=== PATIENT | female | born 1990 | race Two or more races ===

== ENCOUNTER 2021-10-09 17:13 | Emergency (ER) | payer MEDICAID, OTHER ==
[~2021-10-09] VITALS: Ht 152.4 cm; Wt 70.0 kg
[2021-10-09] MEDS ORDERED: HYDROcodone-ACET 10/325MG TAB PO ONE (21:00)
[2021-10-09] MEDS ORDERED: KETOROLAC TROMETH 60MG/2ML VIAL IM ONE (21:00)
[2021-10-09 22:00] VITALS: BP 124/76
== END 2021-10-09 23:32 | disposition home or self-care (01) ==
LOC: ER 17:13 → EDBD 17:13 → ER 22:55
DX: M54.2 Cervicalgia (principal); M54.6 Pain in thoracic spine; V43.52XA Car driver injured in collision with other type car in traffic accident, initial encounter; Y93.89 Activity, other specified; Y92.488 Other paved roadways as the place of occurrence of the external cause; Y99.8 Other external cause status
CPT/HCPCS: 72040; 96372; 99283; J1885

== ENCOUNTER 2022-07-19 18:06 | Emergency (ER) | payer MEDICAID, OTHER ==
[~2022-07-19] VITALS: Ht 162.6 cm; Wt 77.0 kg
[2022-07-19 18:49] VITALS: BP 138/95
[2022-07-19] MEDS ORDERED: ONDANSETRON HCL 4 MG/2 ML VIAL IV ONE (19:15)
[2022-07-19] MEDS ORDERED: SODIUM CHLORIDE 0.9% 1,000 ML IVB ONE (19:15)
[2022-07-19] MEDS ORDERED: PANTOPRAZOLE 40 MG/10 ML VIAL INJ IV ONE (19:15)
[2022-07-19 19:24] LABS: Urine Bacteria MOD /hpf (None Seen); Urine Blood 3+ /uL (Negative); Urine Specific Gravity 1.038 (1.001-1.035); Urine WBC 22 /hpf (0 - 5)
[2022-07-19 19:25] LABS: Basophils # (auto) 0.1 10 ^3/uL (0-0.2); Basophils % (auto) 0.5 % (0.0-2.0); Eosinophils # (auto) 0.1 10 ^3/uL (0-0.8); Eosinophils % (auto) 0.6 % (0.0-7.0); Hematocrit 46.1 % (36.0-46.0); Hemoglobin 15.8 g/dL (12.2-16.2); Lymphocytes # (auto) 3.5 10 ^3/uL (0.4-5.4); Lymphocytes % (auto) 29.5 % (10.0-50.0); Mean Corpuscular Hemoglobin 28.9 pg (28.0-32.0); Mean Corpuscular Hgb Conc. 34.2 g/dL (32.0-36.0); Mean Corpuscular Volume 84.5 fL (80.0-100.0); Monocytes # (auto) 0.5 10 ^3/uL (0-1.3); Monocytes % (auto) 3.8 % (0.0-12.0); Neutrophils # (auto) 7.8 10 ^3/uL (1.6-8.6); Neutrophils % (auto) 65.6 % (37.0-80.0); Nucleated Red Blood Cells % 0.2 %; Red Blood Cells 5.46 10^6/uL (4.0-5.20); Red Cell Distribution Width 13.2 % (11.8-14.3); White Blood Cell 11.9 10^3/uL (4.4-10.8)
[2022-07-19 19:45] LABS: INR 0.93 (0.9-1.15); Partial Thromboplastin Time 25.2 sec (24.6-33.4)
[2022-07-19 19:53] LABS: Albumin 3.8 g/dL (3.4-5.0); BUN/Creatinine Ratio 24.5 (10.0-20.0); Calcium 9.1 mg/dL (8.5-10.1); Potassium 3.6 mmol/L (3.5-5.1)
[2022-07-19 20:03] LABS: Bilirubin, Total 0.3 mg/dL (0.2-1.0); Total Protein 8.4 g/dL (6.4-8.2)
[2022-07-19] MEDS ORDERED: cefTRIAXone 1GM/50ML D5W 50 ML IV ONE (20:30)
[2022-07-19] MEDS ORDERED: ONDA-144 PO (20:31)
[2022-07-19] MEDS ORDERED: CIPR-173 PO (20:31)
== END 2022-07-19 23:25 | disposition home or self-care (01) ==
LOC: ER 18:06
DX: N39.0 Urinary tract infection, site not specified (principal); Z90.49 Acquired absence of other specified parts of digestive tract
CPT/HCPCS: 36415; 74176; 80053; 81001; 81025; 83690; 85025; 85610; 85730; 96365; 96375; 99285; C9113; J0696; J2405; J7030

== ENCOUNTER 2023-03-28 20:54 | Emergency (ER) | payer MEDICAID ==
[~2023-03-28] VITALS: Ht 154.9 cm; Wt 169.0 kg
[~2023-03-28 20:54] MED LIST: CIPR-173 PO; ONDA-144 PO
[2023-03-28 21:26] LABS: Basophils # (auto) 0 10 ^3/uL (0-0.2); Basophils % (auto) 0.3 % (0.0-2.0); Eosinophils # (auto) 0.1 10 ^3/uL (0-0.8); Eosinophils % (auto) 0.9 % (0.0-7.0); Hematocrit 44.7 % (36.0-46.0); Hemoglobin 15.3 g/dL (12.2-16.2); Lymphocytes # (auto) 4.2 10 ^3/uL (0.4-5.4); Lymphocytes % (auto) 45.4 % (10.0-50.0); Mean Corpuscular Hemoglobin 29.6 pg (28.0-32.0); Mean Corpuscular Hgb Conc. 34.3 g/dL (32.0-36.0); Mean Corpuscular Volume 86.3 fL (80.0-100.0); Monocytes # (auto) 0.5 10 ^3/uL (0-1.3); Monocytes % (auto) 5.9 % (0.0-12.0); Neutrophils # (auto) 4.4 10 ^3/uL (1.6-8.6); Neutrophils % (auto) 47.5 % (37.0-80.0); Nucleated Red Blood Cells % 0.1 %; Red Blood Cells 5.18 10^6/uL (4.0-5.20); Red Cell Distribution Width 12.7 % (11.8-14.3); White Blood Cell 9.3 10^3/uL (4.4-10.8)
[2023-03-28 21:33] LABS: Chloride 98 mmol/L (98-107); Potassium 3.4 mmol/L (3.5-5.1); Sodium 131 mmol/L (136-145)
[2023-03-28 21:34] LABS: Anion Gap 11 (5-15); Calcium 9.7 mg/dL (8.5-10.1); Carbon Dioxide 22 mmol/L (20-30)
[2023-03-28 21:39] LABS: BUN/Creatinine Ratio 14.9 (10.0-20.0); Blood Urea Nitrogen 10 mg/dL (9-23); Glucose 385 mg/dL (74-106)
[2023-03-28] MEDS ORDERED: OMEP-434 PO (23:17)
[2023-03-28 23:43] VITALS: BP 120/88; PULSE 94; RESP 20; TEMP 97.8; O2SAT 97
== END 2023-03-28 23:44 | disposition home or self-care (01) ==
LOC: ER 20:54
DX: K21.9 Gastro-esophageal reflux disease without esophagitis (principal); R07.89 Other chest pain; Z98.890 Other specified postprocedural states; Z79.899 Other long term (current) drug therapy
CPT/HCPCS: 36415; 71045; 80048; 83880; 84484; 85025; 93005

== ENCOUNTER 2024-01-17 09:21 | Emergency (ER) | payer MEDICAID, OTHER ==
[~2024-01-17] VITALS: Ht 160 cm; Wt 80.2 kg
[~2024-01-17 09:21] MED LIST changes: +OMEP-434 PO
[2024-01-17 09:49] VITALS: PULSE 117; RESP 16; O2SAT 97
[2024-01-17] MEDS: SODIUM CHLORIDE 0.9% 1,000 ML IV ONE (10:34)
[2024-01-17] MEDS: ONDANSETRON ODT 4 MG TAB PO ONE (10:37)
[2024-01-17 11:00] LABS: Basophils # (auto) 0 10 ^3/uL (0-0.2); Basophils % (auto) 0.2 % (0.0-2.0); Eosinophils # (auto) 0 10 ^3/uL (0-0.8); Hematocrit 44.6 % (36.0-46.0); Hemoglobin 14.9 g/dL (12.2-16.2); Lymphocytes # (auto) 2.4 10 ^3/uL (0.4-5.4); Lymphocytes % (auto) 15.1 % (10.0-50.0); Mean Corpuscular Hgb Conc. 33.5 g/dL (32.0-36.0); Mean Corpuscular Volume 86.4 fL (80.0-100.0); Monocytes # (auto) 0.5 10 ^3/uL (0-1.3); Neutrophils % (auto) 81.7 % (37.0-80.0); Platelet Count (auto) 337 10^3/uL (140-450); Red Blood Cells 5.16 10^6/uL (4.0-5.20); Red Cell Distribution Width 13.3 % (11.8-14.3); White Blood Cell 15.9 10^3/uL (4.4-10.8)
[2024-01-17 11:32] LABS: Anion Gap 12 (5-15); Carbon Dioxide 22 mmol/L (20-31); Chloride 103 mmol/L (98-107); Potassium 3.3 mmol/L (3.5-5.1); Sodium 137 mmol/L (136-145)
[2024-01-17 11:34] LABS: Calcium 10.1 mg/dL (8.7-10.4)
[2024-01-17 11:38] LABS: Blood Urea Nitrogen 11 mg/dL (9-23); Glucose 247 mg/dL (74-106)
[2024-01-17 11:44] LABS: Lipase 52 U/L (12-53)
[2024-01-17 12:20] VITALS: BP 113/77; PULSE 107; RESP 18; TEMP 98.2; O2SAT 96
[2024-01-17 12:31] LABS: Urine Bacteria None Seen /hpf (None Seen)
[2024-01-17] MEDS ORDERED: ZOFR4T PO (12:53)
[2024-01-17 13:06] LABS: Urine Blood Negative /uL (Negative); Urine Clarity Clear (Clear); Urine Color Light-Yellow (Yellow); Urine Mucus FEW (None Seen); Urine Protein, UAD 1+ (Negative); Urine Specific Gravity 1.036 (1.001-1.035); Urine Urobilinogen Normal (Negative); Urine WBC 3 /hpf (0 - 5)
== END 2024-01-17 13:31 | disposition home or self-care (01) ==
LOC: ER 09:21
DX: R11.2 Nausea with vomiting, unspecified (principal); R10.13 Epigastric pain; R10.2 Pelvic and perineal pain; E11.9 Type 2 diabetes mellitus without complications; Z90.49 Acquired absence of other specified parts of digestive tract; Z79.899 Other long term (current) drug therapy
CPT/HCPCS: 36415; 80048; 81001; 82962; 83690; 84702; 85025; 96360; 99283; J7030; Q0162

== ENCOUNTER 2024-01-18 20:06 | Emergency (ER) | payer OTHER ==
[~2024-01-18] VITALS: Ht 160 cm; Wt 80.6 kg
[~2024-01-18 20:06] MED LIST changes: +ZOFR4T PO
[2024-01-18 20:47] LABS: Basophils # (auto) 0.1 10 ^3/uL (0-0.2); Eosinophils # (auto) 0 10 ^3/uL (0-0.8); Eosinophils % (auto) 0.4 % (0.0-7.0); Hematocrit 44.7 % (36.0-46.0); Hemoglobin 15.4 g/dL (12.2-16.2); Lymphocytes # (auto) 3.2 10 ^3/uL (0.4-5.4); Mean Corpuscular Hemoglobin 29.2 pg (28.0-32.0); Mean Corpuscular Hgb Conc. 34.4 g/dL (32.0-36.0); Monocytes # (auto) 0.6 10 ^3/uL (0-1.3); Neutrophils # (auto) 8.2 10 ^3/uL (1.6-8.6); Neutrophils % (auto) 67.6 % (37.0-80.0); Platelet Count (auto) 343 10^3/uL (140-450); Red Blood Cells 5.26 10^6/uL (4.0-5.20); Red Cell Distribution Width 13.2 % (11.8-14.3); White Blood Cell 12.2 10^3/uL (4.4-10.8)
[2024-01-18 20:55] VITALS: TEMP 97.8
[2024-01-18] MEDS: SODIUM CHLORIDE 0.9% 1,000 ML IV ONE (20:57)
[2024-01-18] MEDS: MORPHINE SULFATE 4 MG/ML SYR/VIAL IV ONE (20:58)
[2024-01-18] MEDS: FAMOTIDINE (10MG/ML) 2ML VL IV ONE (20:59)
[2024-01-18] MEDS: ONDANSETRON HCL 4 MG/2 ML VIAL IV ONE (20:59)
[2024-01-18 21:12] LABS: Alanine Aminotransferase 105 U/L (7-40); Albumin 5.1 g/dL (3.2-4.8); Alkaline Phosphatase 64 U/L (46-116); Anion Gap 15 (5-15); Aspartate Aminotransferase 65 U/L (13-40); BUN/Creatinine Ratio 23.3 (10.0-20.0); Blood Urea Nitrogen 14 mg/dL (9-23); Calcium 9.8 mg/dL (8.7-10.4); Carbon Dioxide 20 mmol/L (20-31); Chloride 101 mmol/L (98-107); Glucose 232 mg/dL (74-106); Lipase 48 U/L (12-53); Sodium 136 mmol/L (136-145)
[2024-01-18 21:13] LABS: Bilirubin, Total 0.8 mg/dL (0.2-1.0)
[2024-01-18 21:20] LABS: Urine Bacteria FEW /hpf (None Seen); Urine Blood Negative /uL (Negative); Urine Clarity Turbid (Clear); Urine Color Yellow (Yellow); Urine Mucus FEW (None Seen); Urine Protein, UAD 1+ (Negative); Urine Specific Gravity 1.023 (1.001-1.035); Urine Urobilinogen Normal (Negative); Urine WBC 24 /hpf (0 - 5)
[2024-01-18 21:35] VITALS: BP 120/82; PULSE 100; RESP 18; O2SAT 98
== END 2024-01-18 22:11 | disposition home or self-care (01) ==
LOC: ER 20:06
DX: R11.2 Nausea with vomiting, unspecified (principal); T50.995A Adverse effect of other drugs, medicaments and biological substances, initial encounter; E11.9 Type 2 diabetes mellitus without complications; Z90.49 Acquired absence of other specified parts of digestive tract; Z79.899 Other long term (current) drug therapy; Y92.89 Other specified places as the place of occurrence of the external cause
CPT/HCPCS: 36415; 80053; 81001; 82962; 83690; 85025; 96361; 96374; 96375; 99284; J2270; J2405; J3490; J7030